=== PATIENT | female | born 2000 | race Caucasian/White ===

== ENCOUNTER 2020-07-23 21:16 | Emergency (ER) | payer OTHER, SELFPAY ==
[2020-07-23 21:21] VITALS: BP 178/85; PULSE 93; RESP 16; TEMP 36.9; O2SAT 98; BMI 37.8
[2020-07-23 21:47] LABS: Bacteria Urine None Seen; WBC Urine None Seen (0-5/HPF)
[2020-07-23 22:07] LABS: Culture Indicated Urine Cult Not Indicated; RBC Urine 0-1/HPF (0-5/HPF); Squamous Epithelial Cell Urine 0-1 /HPF (0-5/HPF)
--- NOTE | 2020-07-23 22:19 | ED_ITS ---
HPI - Female Genitourinary General Chief complaint: Urogenital-Female Stated complaint: severe stomach pains Time Seen by Provider: 07/23/20 22:08 Source: patient Mode of arrival: Ambulatory Limitations: no limitations History of Present Illness HPI Narrative: Patient is a 20-year-old female who presents with suprapubic pain and frequent urination which started today. She denies any dysuria or hematuria. No fever chills or flank pain no nausea or vomiting. She has had UTIs in the past this does feel a little bit different. She denies any vaginal discharge or abnormal smells. Complaint: UTI Onset (ago): hour(s) Related Data Previous Rx's Medication Instructions Recorded sulfamethoxazole-trimethoprim 1 tab PO BID 4 Days #8 tab 07/23/20 [Bactrim DS] Allergies Allergy/AdvReac Type Severity Reaction Status Date / Time No Known Drug Allergies Allergy Verified 07/23/20 21:26 Review of Systems Review of Systems Narrative: GENERAL: Denies chills,fever HEENT: Denies throat pain RESPIRATORY: Denies dyspnea, cough, wheezing CARDIOVASCULAR: Denies chest pain, palpitations : See HPI GASTROINTESTINAL: Denies nausea, vomiting MUSCULOSKELETAL: Denies extremity pain, injury SKIN: No rash, no laceration, no pruritus NEUROLOGIC: Denies weakness, dizziness, headache, numbness 8 point review of systems is negative except for those stated above and HPI Patient History Medical History Patient denies medical problems alcohol intake frequency: holidays/special occasions only Substance Use Type: does not use Exam Initial Vital Signs Initial Vital Signs: Vital Signs Temperature 98.4 F 07/23/20 21:21 Pulse Rate 93 H 07/23/20 21:21 Respiratory Rate 16 07/23/20 21:21 Blood Pressure 178/85 H 07/23/20 21:21 Pulse Oximetry 98 07/23/20 21:21 GENERAL: Alert well-appearing 20-year-old female and in no acute distress. HEENT: Head atraumatic,EOMI, pupils reactive, face symmetric, moist mucous membranes CARDIOVASCULAR: Regular rate and rhythm without murmurs, rubs or gallops. RESPIRATORY: Breath sounds equal bilaterally, no wheezes rales or rhonchi. ABDOMEN: Soft, mild suprapubic tenderness no guarding no rebound no lower quadrant pain : No CVA tenderness EXTREMITIES: Normal range of motion, no clubbing or edema. Neurovascularly intact NEUROLOGICAL: Alert and oriented x4.Normal gait and speech. SKIN: Warm, dry, no laceration, no petechiae, no rashes or lesions. Course Orders Ordered: ED Orders 07/23/20 21:46 Urine Microscopic Stat Discontinued Medications Trimethoprim/Sulfamethoxazole (Trimeth/Sulfa 160/800 Prepack) 1 bottle MISC SEEINSTR ONE Stop: 07/23/20 22:25 Last Admin: 07/23/20 22:35 Dose: 1 bottle Documented by: ABBEY Vital Signs Vital signs: Vital Signs - 8 hr 07/23/20 21:21 07/23/20 22:40 Temperature 98.4 F 98.6 F Pulse Rate 93 H 93 H Respiratory Rate 16 20 Blood Pressure 178/85 H 135/80 Pulse Oximetry 98 97 MDM - Female Genitourinary Lab Data Attestation: I reviewed the patient's lab results. Labs: Lab Results 07/23/20 Range/Units 21:46 Urine RBC 0-1/hpf (0-5/HPF) Urine WBC None seen (0-5/HPF) Ur Squamous Epith Cells 0-1 /hpf (0-5/HPF) Urine Bacteria None seen (None) Ur Culture Indicated? Cult not indicated Micro UA Comment Pyridium present Point of Care Testing Test Results Negative Urine Dip Bedside Urine Glucose Negative Bedside Urine Bilirubin - Negative Bedside Urine Ketone - Negative Urine Specific [place] 1.015 Bedside Urine Occult Blood - Negative Bedside Urine pH 6.0 Bedside Urine Protein - Negative Bedside Urine Urobilinogen +/- 1mg Bedside Urine Nitrite + Positive Bedside Urine Leukocytes - Negative Esterase Discharge Plan Departure Patient Disposition: Home Clinical Impression: Urinary tract infection Qualifiers: Urinary tract infection type: acute cystitis Hematuria presence: without hematuria Qualified Code(s): N30.00 - Acute cystitis without hematuria Instructions: DI for Urinary Tract Infection (UTI) Activity Restrictions/Additional Instructions: *You have been diagnosed with UTI *What to do: Increase fluid intake *Continue to take medications as directed Bathroom 1 tablet twice a day for 5 days total *Follow up with your primary care provider in 2-3 days *Return to ER if you should have fever, flank pain, inability to keep fluids down or any new, worsening or concerning symptoms Prescriptions: New sulfamethoxazole-trimethoprim [Bactrim DS] 800-160 mg tablet 1 tab PO BID 4 Days Qty: 8 RF: 0
[2020-07-23] MEDS: TRIMETH/SULFA 160/800 PREPACK 1 BOTTLE MISC (22:35)
[2020-07-23 22:40] VITALS: BP 135/80; PULSE 93; RESP 20; TEMP 37; O2SAT 97
== END 2020-07-23 22:40 | disposition home or self-care (01) ==
PROVIDERS: Emergency Provider Emergency Medicine
DX: N30.00 Acute cystitis without hematuria (principal)
CPT/HCPCS: 81003; 81015; 81025; 99282; 99283

== ENCOUNTER 2020-09-10 15:25 | Emergency (ER) | payer OTHER, SELFPAY ==
[2020-09-10 15:27] VITALS: BP 164/82; PULSE 90; RESP 16; TEMP 36.2; O2SAT 99; BMI 41.1
--- NOTE | 2020-09-10 15:33 | DI.US.S_ITS ---
P of ROCEDURE: US OB <= 14 WEEKS FETUS INDICATIONS: abd cramping,5 weeks OUTSIDE/PRIOR DATING DATA: Last menstrual period (LMP): 08/02/20. LMP-based estimated date of delivery (LUISA): 05/09/21. First dating scan (date and location): 09/09/20. Estimated date of delivery (LUISA) from first dating scan: Please see below TECHNIQUE: Real-time scanning was performed of the fetus and maternal pelvic organs, with image documentation. Endovaginal scanning was also performed to better visualize the fetus and maternal ovaries. COMPARISON: None. FINDINGS: Embryo: A suspected intrauterine gestational sac is seen measuring 0.75 cm, 5 weeks 4 days however no pole is seen. Measurement variability in dating: +/- 4 weeks by LMP, +/- 7 days by mean sac diameter (use before 6 weeks gestation if crown-rump length not able to be measured), +/- 5 days by crown-rump length (up to 8 weeks 6 days gestation), +/- 7 days by crown-rump length (up to 13 weeks 6 days gestation). Maternal organs: Ovaries unremarkable bilaterally . IMPRESSION: Possible intrauterine gestational sac although no pole identified. Differential includes early intrauterine , versus blighted ovum. Technically cannot exclude ectopic at this time although no gross adnexal mass is seen.Please correlate clinically with beta HCG values and follow-up ultrasound in 1 week recommended as clinically warranted. Dictated by: Emerson Jara M.D. on 09/10/2020 at 16:36 Approved by: Emerson Jara M.D. on 09/10/2020 at 16:40
[2020-09-10 16:18] LABS: Alanine Aminotransferase 45 IU/L (<35); Albumin 4.4 g/dL (3.5-5.0); Albumin Globulin Ratio 1.2 (1.0-2.8); Alkaline Phosphatase 70 U/L (38-126); Aspartate Aminotransferase 37 IU/L (14-36); BUN Creatinine Ratio 14.8 (6-22); Bilirubin Total 0.2 mg/dL (0.2-1.3); Blood Urea Nitrogen 8 mg/dL (7-17); Calcium 9.7 mg/dL (8.4-10.2); Carbon Dioxide 25 mmol/L (22-32); Chloride 102 mmol/L (98-107); Estimated Glomerular Filt Rate > 60.0 mL/min (>60); Globulin 3.7 g/dL (1.7-4.1); Glucose 85 mg/dL (70-100); HEMOLYSIS < 15 (0-50); Potassium 3.9 mmol/L (3.4-5.1); Sodium 135 mmol/L (137-145); Total Protein 8.1 g/dL (6.3-8.2)
[2020-09-10 16:34] LABS: HCG Quantitative /Beta subunit 4224.8 mIU/mL
[2020-09-10 16:48] VITALS: BP 127/75; PULSE 78; O2SAT 97
[2020-09-10 17:15] LABS: Add Manual Diff / Slide Review NO; Basophils Absolute Auto 100 /uL (0-100); Basophils Percent Auto 0.6 % (0-2); Eosinophils Absolute Auto 100 /uL (0-450); Hematocrit 39.3 % (36-46); Hemoglobin 12.8 g/dL (12.0-16.0); Lymphocytes Absolute Auto 3300 /uL (1100-4500); Lymphocytes Percent Auto 23.9 % (25-40); Mean Corpuscular HGB Conc 32.5 % (30-36); Mean Corpuscular Hemoglobin 25.5 PG (26-34); Mean Corpuscular Volume 78.3 fL (80-100); Monocytes Absolute Auto 900 /uL (0-900); Monocytes Percent Auto 6.9 % (3-14); Neutrophils Absolute Auto 9200 /uL (1500-7000); Neutrophils Percent Auto 67.6 % (50-75); Platelet Count 420 X10^3/uL (150-400); Red Blood Cell Count 5.01 X10^6/uL (4.0-5.2); White Blood Cell Count 13.7 X10^3/uL (4.5-11.0)
--- NOTE | 2020-09-10 17:15 | ED_ITS ---
HPI - General Adult General Chief complaint: Abdominal Pain Stated complaint: 5 weeks , cramping Time Seen by Provider: 09/10/20 17:10 Source: patient Mode of arrival: Ambulatory Limitations: no limitations History of Present Illness HPI narrative: Patient is a 20-year-old female. at approximately 5 weeks EGA by her last menstrual cycle who is here for evaluation of abdominal discomfort. She states that the abdominal discomfort started within the past 24 hours. She states that earlier today she and her attempted to have intercourse in the discomfort worsened. She is not having any vaginal bleeding. She has not had an OB appointment up to this point. Related Data Allergies Allergy/AdvReac Type Severity Reaction Status Date / Time No Known Drug Allergies Allergy Verified 09/10/20 15:29 Review of Systems Constitutional Constitutional: Denies fever(s) Cardiovascular Cardiovascular: Reports system reviewed and no additional complaints, except as documented Respiratory Respiratory: Reports system reviewed and no additional complaints, except as documented Gastrointestinal Gastrointestinal: Reports abdominal pain, Denies nausea and Denies vomiting Genitourinary Genitourinary: Denies dysuria Genitourinary: Denies abnormal vaginal bleeding and Denies dysuria Musculoskeletal Musculoskeletal: Denies back pain Integumentary/Breasts Skin/Breast: Denies rash Neurologic Neurologic: Reports system reviewed and no additional complaints, except as documented Hematologic/Lymphatic On Anticoagulants: No Allergic/Immunologic Allergic/Immunologic: Reports system reviewed and no additional complaints, except as documented Patient History Medical History Patient denies medical problems Social History Smoking Status: Unknown if ever smoked Smoking Status: Unknown if ever smoked alcohol intake frequency: holidays/special occasions only Substance Use Type: does not use Exam Initial Vital Signs Initial Vital Signs: Vital Signs Temperature 97.2 F L 09/10/20 15:27 Pulse Rate 90 09/10/20 15:27 Respiratory Rate 16 09/10/20 15:27 Blood Pressure 164/82 H 09/10/20 15:27 Pulse Oximetry 99 09/10/20 15:27 Const General: cooperative and comfortable Limitations: mental status not altered HENMT Head: normal to inspection and normocephalic Resp Effort & Inspection: normal respiratory effort Cardio Rate: regular rate GI Inspection: non-distended Skin Lesions: no lesions Rashes: no rashes Neuro General: patient alert and patient awake Cognition: normal cognition Speech: speech normal Extrem General: normal to inspection and capillary refill normal Psych Appearance: grossly normal and well kempt Course Orders Ordered: ED Orders 09/10/20 15:33 US OB <= 14 weeks fetus Stat 09/10/20 15:44 ABO RH Type Stat Complete Blood Count AUTO DIFF Stat Comprehensive Metabolic Panel Stat HCG Quantitative /Beta subunit Stat Vital Signs Vital signs: Vital Signs - 8 hr 09/10/20 15:27 09/10/20 16:48 Temperature 97.2 F L Pulse Rate 90 78 Respiratory Rate 16 Blood Pressure 164/82 H 127/75 Pulse Oximetry 99 97 Medical Decision Making Lab Data Lab results reviewed: Yes I reviewed the patient's lab results. Result diagrams: 09/10/20 15:44 09/10/20 15:44 Labs: Lab Results 09/10/20 09/10/20 09/10/20 Range/Units 15:44 15:44 15:44 WBC 13.7 H (4.5-11.0) X10^3/uL RBC 5.01 (4.0-5.2) X10^6/uL Hgb 12.8 (12.0-16.0) g/dL Hct 39.3 (36-46) % MCV 78.3 L (80-100) fL MCH 25.5 L (26-34) PG MCHC 32.5 (30-36) % RDW 15.0 H (11.6-14.8) % Plt Count 420 H (150-400) X10^3/uL Neut % (Auto) 67.6 (50-75) % Lymph % (Auto) 23.9 L (25-40) % [place] % (Auto) 6.9 (3-14) % Eos % (Auto) 1.0 L (2-4) % Baso % (Auto) 0.6 (0-2) % Neut # (Auto) 9200 H (5231-1321) /uL Lymph # (Auto) 3300 (9064-2634) /uL [place] # (Auto) 900 (0-900) /uL Eos # (Auto) 100 (0-450) /uL Baso # (Auto) 100 (0-100) /uL Sodium 135 L (137-145) mmol/L Potassium 3.9 (3.4-5.1) mmol/L Chloride 102 (98-107) mmol/L Carbon Dioxide 25 (22-32) mmol/L BUN 8 (7-17) mg/dL Creatinine 0.54 (0.52-1.04) mg/dL Estimated GFR > 60.0 (>60) mL/min BUN/Creatinine Ratio 14.8 (6-22) Glucose 85 (70-100) mg/dL Calcium 9.7 (8.4-10.2) mg/dL Total Bilirubin 0.2 (0.2-1.3) mg/dL AST 37 H (14-36) IU/L ALT 45 H (<35) IU/L Alkaline Phosphatase 70 (38-126) U/L Total Protein 8.1 (6.3-8.2) g/dL Albumin 4.4 (3.5-5.0) g/dL Globulin 3.7 (1.7-4.1) g/dL Albumin/Globulin Ratio 1.2 (1.0-2.8) HCG, Quant 4224.8 mIU/mL Blood Type A Positive Point of Care Testing Test Results Positive Urine Dip Bedside Urine Glucose Negative Bedside Urine Bilirubin - Negative Bedside Urine Ketone - Negative Urine Specific [place] 1.020 Bedside Urine Occult Blood - Negative Bedside Urine pH 6.0 Bedside Urine Protein - Negative Bedside Urine Urobilinogen - Negative Bedside Urine Nitrite - Negative Bedside Urine Leukocytes - Negative Esterase Point of care testing: Point of Care Testing Test Results Positive Urine Dip Bedside Urine Glucose Negative Bedside Urine Bilirubin - Negative Bedside Urine Ketone - Negative Urine Specific [place] 1.020 Bedside Urine Occult Blood - Negative Bedside Urine pH 6.0 Bedside Urine Protein - Negative Bedside Urine Urobilinogen - Negative Bedside Urine Nitrite - Negative Bedside Urine Leukocytes - Negative Esterase [facility] Narrative Medical decision making narrative: Patient is Rh positive. No indication for RhoGAM based on this and the fact that she is not having any vaginal bleeding. She is having some abdominal discomfort that has started within the past 24 hours. Her hCG level was above the threshold for which we should see a intrauterine . Gestational sac was seen but no pole. I suspect this is because she is early on in her given her presentation today. I did discuss with her the findings on the labs and also the ultrasound. We did discuss the importance of keeping a follow-up appointment with her OB. She was given strict return precautions. She does have leukocytosis or there is no indication for any infection. No antibiotics needed. Patient expressed understanding agreement this plan. Discharge Plan Departure Patient Disposition: Home Clinical Impression: Abdominal pain affecting Instructions: DI for Abdominal Pain -- Early Activity Restrictions/Additional Instructions: I recommend that you contact your primary doctor for follow-up like we discussed. Return to the emergency department for any new or worsening sympt oms.
[2020-09-10 17:28] VITALS: BP 137/75; PULSE 89; RESP 16; O2SAT 99
== END 2020-09-10 17:29 | disposition home or self-care (01) ==
PROVIDERS: Emergency Provider Emergency Medicine
DX: O26.891 Other specified pregnancy related conditions, first trimester (principal); R10.9 Unspecified abdominal pain; Z3A.01 Less than 8 weeks gestation of pregnancy
CPT/HCPCS: 36415; 76801; 80053; 81003; 81025; 84702; 85025; 86900; 86901; 99282; 99284

== ENCOUNTER → 2020-10-06 14:10 | Outpatient (CLI) | payer OTHER, SELFPAY ==
--- NOTE | 2020-10-06 14:11 | DI.US.S_ITS ---
PROCEDURE: US OB <= 14 WEEKS FETUS INDICATIONS: DATING AND VIABILITY OUTSIDE/PRIOR DATING DATA: Last menstrual period (LMP): August 02, 2020 LMP-based estimated date of delivery (LUISA): May 09, 2021 First dating scan (date and location): September 09, 2020 Estimated date of delivery (LUISA) from first dating scan: May 09, 2021 TECHNIQUE: Real-time scanning was performed of the fetus and maternal pelvic organs, with image documentation. Endovaginal scanning was also performed to better visualize the fetus and maternal ovaries. COMPARISON: [facility], , OB <= 14 WEEKS FETUS, 09/10/2020, 14:53. FINDINGS: Embryo: Single living intrauterine identified. Yolk sac identified. pole identified. The crown-rump length measures 2.3 centimeters corresponding to ultrasound estimated gestational age of 9 weeks 0 days with expected age of 9 weeks 2 days based on initial ultrasound. Heart rate: 175 beats per minute. Measurement variability in dating: +/- 4 weeks by LMP, +/- 7 days by mean sac diameter (use before 6 weeks gestation if crown-rump length not able to be measured), +/- 5 days by crown-rump length (up to 8 weeks 6 days gestation), +/- 7 days by crown-rump length (up to 13 weeks 6 days gestation). Maternal organs: Ovaries are sonographically normal. Maternal cervix is closed and measures 4.5 centimeters. IMPRESSION: Single living intrauterine with ultrasound estimated gestational age of 9 weeks 0 days in the current study and expected age of 9 weeks 2 days based on initial ultrasound. Dictated by: Maude Fairchild MD, PhD on 10/06/2020 at 17:09 Approved by: Maude Fairchild MD, PhD on 10/06/2020 at 17:12
== END ==
PROVIDERS: PCP Family Medicine; Referring Provider Family Medicine; Visit Provider Family Medicine
DX: Z34.81 Encounter for supervision of other normal pregnancy, first trimester (principal); Z3A.09 9 weeks gestation of pregnancy
CPT/HCPCS: 76801

== ENCOUNTER → 2020-10-13 15:41 | Outpatient (CLI) | payer OTHER, SELFPAY ==
[2020-10-13 16:53] LABS: Add Manual Diff / Slide Review NO; Basophils Absolute Auto 100 /uL (0-100); Basophils Percent Auto 0.6 % (0-2); Eosinophils Absolute Auto 100 /uL (0-450); Eosinophils Percent Auto 0.8 % (2-4); Hematocrit 37.2 % (36-46); Hemoglobin 11.9 g/dL (12.0-16.0); Lymphocytes Absolute Auto 2600 /uL (1100-4500); Lymphocytes Percent Auto 21.7 % (25-40); Mean Corpuscular HGB Conc 32.1 % (30-36); Mean Corpuscular Hemoglobin 25.2 PG (26-34); Mean Corpuscular Volume 78.5 fL (80-100); Monocytes Absolute Auto 700 /uL (0-900); Monocytes Percent Auto 5.9 % (3-14); Neutrophils Absolute Auto 8600 /uL (1500-7000); Platelet Count 458 X10^3/uL (150-400); Red Blood Cell Count 4.74 X10^6/uL (4.0-5.2); Red Cell Distribution Width 14.7 % (11.6-14.8); White Blood Cell Count 12.1 X10^3/uL (4.5-11.0)
[2020-10-13 17:16] LABS: Appearance Urine UA CLEAR; Bilirubin Urine UA NEGATIVE (NEGATIVE); Color Urine UA YELLOW; Glucose Urine UA NEGATIVE (Negative); Ketones Urine UA TRACE (NEGATIVE); Leukocyte Esterase Urine UA NEGATIVE (NEGATIVE); Nitrite Urine UA NEGATIVE (Negative); Occult Blood Urine UA TRACE-LYSED (Negative); Protein Urine UA NEGATIVE (Negative); Specific Gravity Urine UA 1.025 (1.000-1.035); Urobilinogen Urine UA 0.2 E.U./dL (0.2)
[2020-10-14 08:09] LABS: RPR Screen Non Reactive (Non Reactive); Varicella IgG Antibody 195 index (Immune >165)
[2020-10-15 17:04] LABS: Hepatitis B Surface Antigen NEGATIVE s/c (NEGATIVE); Rubella Antibody IgG 8.8 IU/mL (>15)
[2020-10-15 17:14] LABS: HIV 1 & 2 Ab/Ag 4th Gen Combo NEGATIVE (NEGATIVE)
[2020-10-15 17:20] LABS: Hep C Virus Ab w/Reflex Quant NEGATIVE s/c (NEGATIVE)
== END ==
PROVIDERS: PCP Family Medicine; Referring Provider Family Medicine; Visit Provider Family Medicine
DX: Z34.81 Encounter for supervision of other normal pregnancy, first trimester (principal)
CPT/HCPCS: 36415; 80055; 81003; 86787; 86803; 86850; 86900; 86901; 87086; 87389

== ENCOUNTER → 2020-10-26 13:24 | Outpatient (CLI) | payer OTHER, SELFPAY ==
[2020-10-26 14:29] LABS: Appearance Urine UA CLEAR; Bilirubin Urine UA NEGATIVE (NEGATIVE); Color Urine UA YELLOW; Glucose Urine UA NEGATIVE (Negative); Ketones Urine UA TRACE (NEGATIVE); Leukocyte Esterase Urine UA TRACE (NEGATIVE); Nitrite Urine UA NEGATIVE (Negative); Occult Blood Urine UA TRACE-INTACT (Negative); Protein Urine UA TRACE (Negative); Specific Gravity Urine UA >=1.030 (1.000-1.035); Urobilinogen Urine UA 0.2 E.U./dL (0.2)
[2020-10-26 15:04] LABS: pH Urine UA 5.5 (4.5-8.0)
[2020-10-26 15:08] LABS: Bacteria Urine Moderate (10-30); RBC Urine 0-1/HPF (0-5/HPF); Squamous Epithelial Cell Urine 1-5 /HPF (0-5/HPF); WBC Urine 1-5/HPF (0-5/HPF)
[2020-10-26 15:09] LABS: Calcium Oxalate Crystals Urine Few; Culture Indicated Urine Specimen Cultured
== END ==
PROVIDERS: PCP Family Medicine; Referring Provider Family Medicine; Visit Provider Family Medicine
DX: R30.0 Dysuria (principal)
CPT/HCPCS: 81001; 87086

== ENCOUNTER → 2020-12-08 14:40 | Outpatient (CLI) | payer OTHER, SELFPAY ==
[2020-12-10 19:12] LABS: AFP, Serum 25.7 ng/mL (.); Calc Gestational Age Ultrasound (.); Estriol, Free 1.47 ng/mL (.); Inhibin A, Dimeric 112.58 pg/mL (.); Inhibin A, MoM 0.96 (.); Maternal Ethnicity Caucasian (.); Maternal Weight 255 lbs (.); Number of Fetuses No (.); OSBR Risk 1 IN 10000 (.); Results Report (.); Test Results *Screen Negative* (.); hCG, MoM 1.79 (.); hCG, Serum 34946 mIU/mL (.)
== END ==
PROVIDERS: PCP Family Medicine; Referring Provider Family Medicine; Visit Provider Family Medicine
DX: Z34.90 Encounter for supervision of normal pregnancy, unspecified, unspecified trimester (principal); Z3A.16 16 weeks gestation of pregnancy
CPT/HCPCS: 36415; 82105; 82677; 84702; 86336

== ENCOUNTER → 2020-12-28 14:57 | Outpatient (CLI) | payer OTHER, SELFPAY ==
--- NOTE | 2020-12-28 14:58 | DI.US.S_ITS ---
PROCEDURE: US OB >= 14 WEEKS FETUS INDICATIONS: ANATOMY OUTSIDE/PRIOR DATING DATA: Last menstrual period (LMP): Unknown . LMP-based estimated date of delivery (LUISA): Unknown . First dating scan (date and location): 12/28/20 . Estimated date of delivery (LUISA) from first dating scan: 05/10/21 . TECHNIQUE: Real-time scanning was performed of the fetus, with image documentation and biometric measurements. Endovaginal scanning: Not performed COMPARISON: None. FINDINGS: General: A single living intrauterine gestation is present. Presentation: Vertex. Placenta: Placental position is posterior , without previa. Amniotic fluid index: 11.8 cm, normal range is 5-24 cm. heart rate: 145 beats per minute. Maternal cervical canal: 4.2 cm long. Normal lower limit is 2.5 cm. biometrics: Biparietal diameter: 5.0 cm, 21 weeks 0 days Head circumference: 18.0 cm, 20 weeks 3 days Abdominal circumference: 16.3 cm, 21 weeks 3 days Femur length: 3.6 cm, 21 weeks 2 days Estimated gestational age from initial scan: not applicable. Composite gestational age from present scan: 21 weeks 0 days Estimated weight and percentile: 411 g Measurement variability for biometric dating: +/- 7 days from 14 weeks to 15 weeks 6 days gestation, +/- 10 days from 16 weeks to 21 weeks 6 days gestation, +/- 2 weeks from 22 weeks to 27 weeks 6 days gestation, +/- 3 weeks for 28 weeks gestation or later. weight reference: 4500 g or EFW >90/95% is considered macrosomia or large for gestational age. EFW <10% is small for gestational age. EFW 5% or less is considered intra-uterine growth restriction. Anatomic survey: Neuro: Ventricles are non-dilated at less than 10 mm. Cisterna magna is normal at 3-11 mm. Cerebellum is normal in size and morphology. Nuchal skin fold: Normal at less than 6 mm between 14-21 weeks gestational age. Face: Nose and lips, facial profile are normal. Spine: No evidence for spina bifida. Heart: 4-chambered heart is present, with normal ventricular outflow tracts. Diaphragm: Diaphragm is intact. Stomach: Left-sided stomach is present. Kidneys: No hydronephrosis. Normal is less than 5 mm in 2nd trimester, less than 7 mm in 3rd trimester. Cord: 3-vessel cord has orthotopic insertion. Bladder: Normal in size. Extremities: All 4 extremities identified. IMPRESSION: Single living intrauterine fetus with a gestational age measuring 21 weeks and 0 days by today's ultrasound measurements in vertex presentation. Growth assessment precluded by absence of first-trimester ultrasound or LMP. A follow-up ultrasound for growth purposes could be performed in 3-4 weeks as clinically necessary. Normal anatomic survey Dictated by: Emerson Jara M.D. on 12/28/2020 at 17:16 Approved by: Emerson Jara M.D. on 12/28/2020 at 17:19
== END ==
PROVIDERS: PCP Family Medicine; Referring Provider Family Medicine; Visit Provider Family Medicine
DX: Z36.89 Encounter for other specified antenatal screening (principal); Z3A.21 21 weeks gestation of pregnancy
CPT/HCPCS: 76811

== ENCOUNTER 2021-02-06 15:33 | Observation (INO) | payer OTHER, SELFPAY ==
[2021-02-06 16:14] LABS: Appearance Urine UA CLEAR; Bilirubin Urine UA NEGATIVE (NEGATIVE); Color Urine UA YELLOW; Glucose Urine UA NEGATIVE (Negative); Ketones Urine UA NEGATIVE (NEGATIVE); Leukocyte Esterase Urine UA 1+ (NEGATIVE); Nitrite Urine UA NEGATIVE (Negative); Occult Blood Urine UA NEGATIVE (Negative); Protein Urine UA NEGATIVE (Negative); Specific Gravity Urine UA 1.015 (1.000-1.035); Urobilinogen Urine UA 0.2 E.U./dL (0.2)
[2021-02-06 16:29] LABS: Bacteria Urine Moderate (10-30); Culture Indicated Urine Cult Not Indicated; RBC Urine None Seen (0-5/HPF); Squamous Epithelial Cell Urine 5-10 /HPF (0-5/HPF); WBC Urine 1-5/HPF (0-5/HPF)
--- NOTE | 2021-02-06 17:55 | P.TNLD_ITS ---
Visit Information Visit Information Date of evaluation: 02/06/21 Primary OB Provider: Claire Guillen On-call OB Provider: Dahiana Sheikh Comments/Additional reasons for admission: Gretchen is a 20 year old at 26w6d with LUISA of 05/09/2021 per first trimester ultrasound. She presents with concerns that she may have passed her mucus plug 6 days prior to triage. She was seen 5 days prior to admission in clinic with same complaint. Denies any abdominal cramping. No fever. Reports that the day prior to leaking fluid, she did have intercourse. Since that time, she has not needed to use a menstrual pad to catch fluid. No vaginal bleeding. Denies vaginal itching. She has not had intercourse since the discharge occurred 6 days ago. No concerns of infidelity. Baby has been very active. Just prior to coming to triage, she did not feel the baby move as much; however, since arriving in OB, her baby has been very active. She has had a snack here. She has been taking home blood pressures and feels that they may have been falsely elevated because she anxiously awaits the number, home blood pressures average 135/80s. Upon review of her blood pressures in clinic, they have ranged between 108-134/66-78 with one outlier at 148/96, that normalized upon recheck. Denies headache. Blood pressure is normal today in triage. Her course has been otherwise uncomplicated. She did have an [facility] ED visit for abdominal discomfort, workup unremarkable. Pain resolved. LABS/IMAGING: ABO: A positive, antibody negative on 10/14/2019. Rubella non-immune. Hepatitis-B surface antigen negative. HIV, HSV 1 and 2 negative. VDRL negative. Varicella titer positive. Hemoglobin/hematocrit 12.8/39.3 on 09/10/2020. Quad screen negative on 12/08/2020. Dating US: Anatomy Scan: OBSTETRIC HISTORY: G1: first trimster SAB, 07/16/20, no complications GYNECOLOGICAL HISTORY: None [facility] Medical History Addiction (~2015) Anemia (~2017) Anxiety Depression Heat stroke Left hand fracture Migraine Obesity PTSD (post-traumatic stress disorder) SAB (spontaneous ) (~07/2016) Surgical History No significant past surgical history Family History Father No problems noted. Mother Hypothyroidism (acquired) Grandfather Family estrangement Chronic alcoholism Grandmother History of prediabetes Grandfather Melanoma Grandmother S/P triple vessel bypass Smoker Sister No problems noted. 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 Exam Narrative Exam Narrative: General: NAD Skin: Color unremarkable, no rash nor lesions HEENT: Neck supple with midline trachea Lungs: CTAB Heart: Normal rate, and regular rhythm, S1, S2 normal, no murmur, click, rub or gallop Abdomen: Gravid, soft, non-tender Extremities: No cord, no edema, no cyanosis Pelvis: Normal female external genitalia, no curd-like discharge externally Monitoring: Variability: Moderate Baseline: 140s Accelerations: Present Decelerations: Variable x 2, resolved after hydration/food Contractions: none, some irritability Strength: mild Objective Labs Labs: Laboratory Results - last 24 hr 02/06/21 15:55 Urine Color Yellow Urine Appearance Clear Urine pH 6.0 Ur Specific [place] 1.015 Urine Protein Negative Urine Glucose (UA) Negative Urine Ketones Negative Urine Occult Blood Negative Urine Nitrate Negative Urine Bilirubin Negative Urine Urobilinogen 0.2 Ur Leukocyte Esterase 1+ H Urine RBC None seen Urine WBC 1-5/hpf Ur Squamous Epith Cells 5-10 /hpf H Urine Bacteria Moderate (10-30) H Ur Culture Indicated? Cult not indicated Diagnosis, Plan/Disposition Plan/Disposition Plan: 1. IUP at 26w6d 2. 3. Vaginal discharge Plan: AmniSure negative. Urinalysis contaminated with skin cells x2. No evidence of nitrites, low suspicion for UTI. Urine GC/chlamydia negative. Provided reassurance, vaginal discharge is likely secondary to post intercourse discharge or physiologic discharge from , especially since discharge has now stopped and she is not needing to wear a pad to catch any ongoing discharge. She is not cramping or having any signs of early labor. Nonstress test is reactive and reassuring. UDS negative. Advised patient follow-up with Dr. Guillen as scheduled, sooner with concerns. She demonstrated understanding and agreement with treatment plan. Questions answered.
[2021-02-06 18:04] LABS: Appearance Urine UA CLEAR; Bilirubin Urine UA NEGATIVE (NEGATIVE); Color Urine UA YELLOW; Glucose Urine UA NEGATIVE (Negative); Ketones Urine UA 1+ (NEGATIVE); Leukocyte Esterase Urine UA TRACE (NEGATIVE); Nitrite Urine UA NEGATIVE (Negative); Occult Blood Urine UA NEGATIVE (Negative); Protein Urine UA NEGATIVE (Negative); Urobilinogen Urine UA 0.2 E.U./dL (0.2)
[2021-02-06 18:06] LABS: pH Urine UA 5.5 (4.5-8.0)
[2021-02-06 18:10] LABS: UR Morphine/Opiate cutoff 300 Negative (Negative); Ur Creatinine Normal (Normal); Ur Specific Gravity Normal (Normal); Urine Amphetamines Negative (Negative); Urine Barbiturates Negative (Negative); Urine Benzodiazepines Negative (Negative); Urine Cocaine Negative (Negative); Urine MDMA Negative (Negative); Urine Methadone Negative (Negative); Urine Methamphetamines Negative (Negative); Urine Oxycodone Negative (Negative); Urine Phencyclidine Negative (Negative); Urine Tetrahydrocannabinol Negative (Negative); Urine Tricyclic Antidepressant Negative (Negative); Urine pH Normal (Normal)
[2021-02-06 18:19] LABS: Amorphous Sediment Urine 1+; Bacteria Urine Moderate (10-30); Culture Indicated Urine Cult Not Indicated; RBC Urine None Seen (0-5/HPF); Squamous Epithelial Cell Urine 10-30 /HPF (0-5/HPF); WBC Urine 5-10/HPF (0-5/HPF)
[2021-02-06 19:34] LABS: Urine N gonorrhoeae NOT DETECTED
[2021-02-06 19:40] LABS: Urine Chlamydia NOT DETECTED
== END 2021-02-06 19:05 | disposition home or self-care (01) ==
PROVIDERS: Admitting Provider Student in an Organized Health Care Education/Training Program; PCP Family Medicine; Referring Provider Student in an Organized Health Care Education/Training Program; Visit Provider Student in an Organized Health Care Education/Training Program
DX: O26.892 Other specified pregnancy related conditions, second trimester (principal); N89.8 Other specified noninflammatory disorders of vagina; Z3A.26 26 weeks gestation of pregnancy
CPT/HCPCS: 59025; 80305; 81001; 87491; 87591; G0378; G0379

== ENCOUNTER → 2021-02-10 10:40 | Outpatient (CLI) | payer OTHER, SELFPAY ==
[2021-02-10 12:31] LABS: Hematocrit 28.9 % (36-46); Hemoglobin 9.4 g/dL (12.0-16.0)
[2021-02-10 12:43] LABS: GTT (PREG) 1 Hour PP 50gm Dose 124 mg/dL (76-139)
== END ==
PROVIDERS: PCP Family Medicine; Referring Provider Family Medicine; Visit Provider Family Medicine
DX: Z34.82 Encounter for supervision of other normal pregnancy, second trimester (principal); Z3A.26 26 weeks gestation of pregnancy
CPT/HCPCS: 36415; 82950; 85014; 85018

== ENCOUNTER → 2021-02-19 14:50 | Outpatient (CLI) | payer OTHER, SELFPAY ==
--- NOTE | 2021-02-19 14:52 | DI.US.S_ITS ---
PROCEDURE: US OB LIMITED INDICATIONS: LARGE FOR GESTATIONAL AGE OUTSIDE/PRIOR DATING DATA: Last menstrual period (LMP): Unknown. First dating scan (date and location): [facility]; December 28, 2020 . Estimated date of delivery (LUISA) from first dating scan: May 10, 2021 . TECHNIQUE: Real-time scanning was performed of the fetus, with image documentation and biometric measurements. COMPARISON: None. FINDINGS: General: A single living intrauterine gestation is present. Presentation: Vertex. Placenta: Placental position is posterior , without previa. Amniotic fluid index: 16.2 cm, normal range is 5-24 cm. heart rate: 173 beats per minute. Maternal cervical canal: Not well visualized. biometrics: Biparietal diameter: 7.6 cm Head circumference: 26.6 cm Abdominal circumference: 24.8 cm Femur length: 5.4 cm Estimated gestational age from initial scan: not applicable. Composite gestational age from present scan: 29 weeks, 2 days Estimated weight and percentile: 1307 g +/-193 g; 50 percentile Measurement variability for biometric dating: +/- 7 days from 14 weeks to 15 weeks 6 days gestation, +/- 10 days from 16 weeks to 21 weeks 6 days gestation, +/- 2 weeks from 22 weeks to 27 weeks 6 days gestation, +/- 3 weeks for 28 weeks gestation or later. weight reference: 4500 g or EFW >90/95% is considered macrosomia or large for gestational age. EFW <10% is small for gestational age. EFW 5% or less is considered intra-uterine growth restriction. Other: Not applicable. IMPRESSION: Live single intrauterine gestation as detailed above. Dictated by: Sam Lau M.D. on 02/19/2021 at 16:15 Approved by: Sam Lau M.D. on 02/19/2021 at 16:18
== END ==
PROVIDERS: PCP Family Medicine; Referring Provider Family Medicine; Visit Provider Family Medicine
DX: Z36.88 Encounter for antenatal screening for fetal macrosomia (principal); Z3A.29 29 weeks gestation of pregnancy
CPT/HCPCS: 76815

== ENCOUNTER 2021-03-15 16:14 | Outpatient (CLI) | payer OTHER, SELFPAY ==
--- NOTE | 2021-03-15 17:01 | PM.OBTRLD ---
Visit Information Visit Information Date of evaluation: 03/15/21 Primary OB Provider: Claire Guillen Reason for Evaluation: Yes non-stress test Comments/Additional reasons for admission: 20-year-old at 32 weeks and 1 day. She comes in concerned about elevated blood pressures at home as high as 154/90. This was during an episode of presumed low blood sugar with dizziness and nausea a couple days ago. Today blood pressure was 140/85 and she did not feel baby was as active as usual. She has had some mild contractions but nothing consistent. No bleeding or leaking though she has had more discharge for weeks (had been seen in the center and AmniSure negative). Vital Signs Vital Signs: Blood pressure 124/63 heart rate 116, repeat blood pressure 125/66 heart rate 99 PFSH Medical History Addiction (~2015) Anemia (~2017) Anxiety Depression Heat stroke Left hand fracture Migraine Obesity PTSD (post-traumatic stress disorder) SAB (spontaneous ) (~07/2016) Surgical History No significant past surgical history Family History Father No problems noted. Mother Hypothyroidism (acquired) Grandfather Family estrangement Chronic alcoholism Grandmother History of prediabetes Grandfather Melanoma Grandmother S/P triple vessel bypass Smoker Sister No problems noted. 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 NST reactive. No contractions noted on monitor. She will follow-up in clinic tomorrow. OB Disposition: home
== END 2021-03-15 17:20 | disposition home or self-care (01) ==
LOC: OB 03-17 07:28
PROVIDERS: PCP Family Medicine; Referring Provider Family Medicine; Visit Provider Family Medicine
DX: O26.893 Other specified pregnancy related conditions, third trimester (principal); R03.0 Elevated blood-pressure reading, without diagnosis of hypertension; Z3A.32 32 weeks gestation of pregnancy
CPT/HCPCS: 59025; G0378; G0379

== ENCOUNTER → 2021-03-16 15:06 | Outpatient (CLI) | payer OTHER, SELFPAY ==
[2021-03-16 15:47] LABS: Add Manual Diff / Slide Review NO; Basophils Absolute Auto 0 /uL (0-100); Basophils Percent Auto 0.2 % (0-2); Eosinophils Absolute Auto 100 /uL (0-450); Eosinophils Percent Auto 0.5 % (2-4); Hematocrit 30.7 % (36-46); Hemoglobin 9.8 g/dL (12.0-16.0); Lymphocytes Absolute Auto 1900 /uL (1100-4500); Lymphocytes Percent Auto 14.2 % (25-40); Mean Corpuscular HGB Conc 31.8 % (30-36); Mean Corpuscular Hemoglobin 23.5 PG (26-34); Mean Corpuscular Volume 73.8 fL (80-100); Monocytes Absolute Auto 700 /uL (0-900); Monocytes Percent Auto 5.4 % (3-14); Neutrophils Absolute Auto 10500 /uL (1500-7000); Neutrophils Percent Auto 79.7 % (50-75); Platelet Count 411 X10^3/uL (150-400); Red Blood Cell Count 4.17 X10^6/uL (4.0-5.2); White Blood Cell Count 13.2 X10^3/uL (4.5-11.0)
[2021-03-16 16:44] LABS: Alanine Aminotransferase 12 IU/L (<35); Albumin 3.7 g/dL (3.5-5.0); Albumin Globulin Ratio 1.2 (1.0-2.8); Alkaline Phosphatase 79 U/L (38-126); Aspartate Aminotransferase 17 IU/L (14-36); BUN Creatinine Ratio 12.3 (6-22); Bilirubin Total 0.2 mg/dL (0.2-1.3); Blood Urea Nitrogen 7 mg/dL (7-17); Calcium 9.7 mg/dL (8.4-10.2); Carbon Dioxide 25 mmol/L (22-32); Chloride 103 mmol/L (98-107); Estimated Glomerular Filt Rate > 60.0 mL/min (>60); Glucose 109 mg/dL (70-100); HEMOLYSIS < 15 (0-50); Potassium 4.7 mmol/L (3.4-5.1); Sodium 136 mmol/L (137-145); Total Protein 6.7 g/dL (6.3-8.2)
== END ==
PROVIDERS: PCP Family Medicine; Referring Provider Family Medicine; Visit Provider Family Medicine
DX: O13.9 Gestational [pregnancy-induced] hypertension without significant proteinuria, unspecified trimester (principal)
CPT/HCPCS: 36415; 80053; 85025

== ENCOUNTER → 2021-03-19 12:59 | Outpatient (CLI) | payer OTHER, SELFPAY ==
[2021-03-19 14:00] LABS: Collection Time Urine 24 Hours; Creatinine Urine Random 241.7 mg/dL; Protein (Total) Urine Random 5 mg/dL (0-12); Total Protein 24 Hour Urine 70 mg/day (42-225); Total Volume Urine 1400 mL
[2021-03-19 14:01] LABS: Protein (Total) Urine Random < 5 mg/dL (0-12); Protein Creatinine Ratio Urine 0.02 GRAM/24H
== END ==
PROVIDERS: PCP Family Medicine; Referring Provider Family Medicine; Visit Provider Family Medicine
DX: O13.9 Gestational [pregnancy-induced] hypertension without significant proteinuria, unspecified trimester (principal)
CPT/HCPCS: 82570; 84156

== ENCOUNTER 2021-03-23 11:51 | Outpatient (CLI) | payer OTHER, SELFPAY ==
--- NOTE | 2021-03-23 12:15 | DI.US.S_ITS ---
PROCEDURE: US OB LIMITED INDICATIONS: AMNIOTIC FLUID AND CERVICAL LENGTH OUTSIDE/PRIOR DATING DATA: Last menstrual period (LMP): Unknown. First dating scan (date and location): [facility]; December 28, 2020. Estimated date of delivery (LUISA) from first dating scan: May 10, 2021. The calculations are made using the ultrasound LUISA of May 10, 2021. TECHNIQUE: Real-time scanning was performed of the fetus, with image documentation. COMPARISON: [facility], , US OB LIMITED, 02/19/2021, 15:00. FINDINGS: A single living intrauterine gestation is present. Presentation: Vertex. Placenta: Placental position is posterior, without previa. Amniotic fluid index: 16.8 cm, normal range is 5-24 cm. Single deepest vertical pocket is 4.8 cm. heart rate: 162 beats per minute. Maternal cervical canal: 3.3 cm long. Normal lower limit is 2.5 cm. Clinically estimated gestational age: 33 weeks, 1 day IMPRESSION: Single intrauterine gestation as detailed above. Dictated by: Sam Lau M.D. on 03/23/2021 at 13:45 Approved by: Sam Lau M.D. on 03/23/2021 at 13:47
[2021-03-23 13:35] LABS: Add Manual Diff / Slide Review NO; Basophils Absolute Auto 0 /uL (0-100); Basophils Percent Auto 0.3 % (0-2); Eosinophils Absolute Auto 100 /uL (0-450); Eosinophils Percent Auto 0.4 % (2-4); Hematocrit 31.5 % (36-46); Lymphocytes Absolute Auto 1800 /uL (1100-4500); Lymphocytes Percent Auto 13.2 % (25-40); Mean Corpuscular HGB Conc 31.7 % (30-36); Mean Corpuscular Hemoglobin 23.7 PG (26-34); Mean Corpuscular Volume 74.8 fL (80-100); Monocytes Absolute Auto 700 /uL (0-900); Monocytes Percent Auto 5.2 % (3-14); Neutrophils Absolute Auto 11300 /uL (1500-7000); Neutrophils Percent Auto 80.9 % (50-75); Platelet Count 427 X10^3/uL (150-400); Red Cell Distribution Width 17.6 % (11.6-14.8)
--- NOTE | 2021-03-23 13:39 | PM.OBTRLD ---
Visit Information Visit Information Date of evaluation: 03/23/21 Primary OB Provider: Claire Guillen Reason for Evaluation: Yes non-stress test non-stress test reason: hypertension/pre-eclampsia Vital Signs Vital Signs: Temperature 37.5? blood pressure 112/58 heart rate 109 All blood pressures in the center were 110-120 over 58-66 [facility] Medical History (Updated 03/23/21 @ 15:09 by Claire Guillen DO) Addiction (~2015) Anemia (~2017) Anxiety Depression Gestational hypertension Heat stroke Left hand fracture Migraine Obesity PTSD (post-traumatic stress disorder) SAB (spontaneous ) (~07/2016) Surgical History No significant past surgical history Family History Father No problems noted. Mother Hypothyroidism (acquired) Grandfather Family estrangement Chronic alcoholism Grandmother History of prediabetes Grandfather Melanoma Grandmother S/P triple vessel bypass Smoker Sister No problems noted. 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 Smoking Status: Former smoker Tobacco: How many years used: 2 Smokeless tobacco user: dissolvable tobacco quit status: quit date established second hand exposure: No alcohol intake: former substance use type: does not use, former substance user and opiates Objective Labs Result Diagrams: 03/23/21 13:25 03/23/21 13:25 Labs: Laboratory Results - last 24 hr 03/23/21 13:25 WBC 14.0 H RBC 4.20 Hgb 10.0 L Hct 31.5 L MCV 74.8 L MCH 23.7 L MCHC 31.7 RDW 17.6 H Plt Count 427 H Neut % (Auto) 80.9 H Lymph % (Auto) 13.2 L [place] % (Auto) 5.2 Eos % (Auto) 0.4 L Baso % (Auto) 0.3 Neut # (Auto) 63429 H Lymph # (Auto) 1800 [place] # (Auto) 700 Eos # (Auto) 100 Baso # (Auto) 0 Evaluation Evaluation Baseline heart rate: 150 Variability: Moderate (11-25) monitor accelerations: Present Monitor Decelerations: Absent Uterine Contraction Intensity: Mild Non-invasive Membranes Rupture Test: negative Diagnosis, Plan/Disposition Final Diagnosis (1) 33 weeks gestation of : Status: Acute (2) Gestational hypertension: Status: Acute Plan/Disposition Plan: 21-year-old at 33 weeks gestation with gestational hypertension. NST reactive, ADALGISA 16.8. Labs reassuring against preeclampsia. AmniSure was done due to reported leaking of fluid and negative. She is scheduled for a growth ultrasound next week. Will continue twice weekly NST and weekly ADALGISA. She has also been referred to Maternal Medicine and is awaiting an appointment. OB Disposition: home
[2021-03-23 13:47] LABS: Alanine Aminotransferase 14 IU/L (<35); Albumin Globulin Ratio 1.2 (1.0-2.8); Alkaline Phosphatase 87 U/L (38-126); Aspartate Aminotransferase 18 IU/L (14-36); BUN Creatinine Ratio 12.5 (6-22); Bilirubin Total 0.3 mg/dL (0.2-1.3); Blood Urea Nitrogen 6 mg/dL (7-17); Calcium 9.8 mg/dL (8.4-10.2); Carbon Dioxide 23 mmol/L (22-32); Chloride 104 mmol/L (98-107); Estimated Glomerular Filt Rate > 60.0 mL/min (>60); Globulin 3.3 g/dL (1.7-4.1); Glucose 115 mg/dL (70-100); HEMOLYSIS < 15 (0-50); Potassium 4.3 mmol/L (3.4-5.1); Sodium 135 mmol/L (137-145); Total Protein 7.3 g/dL (6.3-8.2)
== END 2021-03-23 14:25 | disposition home or self-care (01) ==
LOC: LABOR 13:39 → OB 03-24 11:42
PROVIDERS: PCP Family Medicine; Referring Provider Family Medicine; Visit Provider Family Medicine
DX: Z03.71 Encounter for suspected problem with amniotic cavity and membrane ruled out (principal); O13.3 Gestational [pregnancy-induced] hypertension without significant proteinuria, third trimester; Z3A.33 33 weeks gestation of pregnancy
CPT/HCPCS: 36415; 59025; 76815; 76817; 80053; 84112; 85025; G0378; G0379

== ENCOUNTER 2021-03-26 14:02 | Outpatient (CLI) | payer OTHER, SELFPAY ==
--- NOTE | 2021-03-26 14:56 | PM.OBTRLD ---
Visit Information Visit Information Date of evaluation: 03/26/21 Primary OB Provider: Claire Guillen Reason for Evaluation: Yes non-stress test non-stress test reason: hypertension/pre-eclampsia Vital Signs Vital Signs: Temperature 36.1? blood pressure 127/72 heart rate 102 PFSH Medical History Addiction (~2016) Anemia (~2018) Anxiety Depression Gestational hypertension Heat stroke Left hand fracture Migraine Obesity PTSD (post-traumatic stress disorder) SAB (spontaneous ) (~07/2016) Surgical History No significant past surgical history Family History Father No problems noted. Mother Hypothyroidism (acquired) Grandfather Family estrangement Chronic alcoholism Grandmother History of prediabetes Grandfather Melanoma Grandmother S/P triple vessel bypass Smoker Sister No problems noted. 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 Smoking Status: Former smoker Tobacco: How many years used: 2 Smokeless tobacco user: dissolvable tobacco quit status: quit date established second hand exposure: No alcohol intake: former substance use type: does not use, former substance user and opiates Evaluation Evaluation Baseline heart rate: 130 Variability: Moderate (11-25) monitor accelerations: Present Monitor Decelerations: Absent Category of Tracing: Reactive Diagnosis, Plan/Disposition Final Diagnosis (1) 33 weeks gestation of : Status: Acute (2) Gestational hypertension: Status: Acute Plan/Disposition Plan: 21-year-old at 33 weeks and 5 days with gestational hypertension on labetalol. Blood pressure controlled. NST reactive. Will continue twice weekly NST along with weekly ADALGISA and labs. She is also awaiting consultation with maternal medicine. OB Disposition: home
== END 2021-03-26 15:23 | disposition home or self-care (01) ==
LOC: LABOR 14:08 → OB 03-31 13:42
PROVIDERS: PCP Family Medicine; Referring Provider Family Medicine; Visit Provider Family Medicine
DX: O13.3 Gestational [pregnancy-induced] hypertension without significant proteinuria, third trimester (principal); Z3A.33 33 weeks gestation of pregnancy
CPT/HCPCS: 59025; G0378; G0379

== ENCOUNTER → 2021-03-30 10:36 | Outpatient (CLI) | payer OTHER, SELFPAY ==
--- NOTE | 2021-03-30 10:38 | DI.US.S_ITS ---
PROCEDURE: US OB LIMITED INDICATIONS: LARGE FOR GESTATIONAL AGE. HYPERTENSION. OUTSIDE/PRIOR DATING DATA: Last menstrual period (LMP): Unknown. LMP-based estimated date of delivery (LUISA): Unknown. First dating scan (date and location): 12/28/2020. [facility]. Estimated date of delivery (LUISA) from first dating scan: 05/10/2021. The calculations are made using the ultrasound LUISA of 05/10/2021. TECHNIQUE: Real-time scanning was performed of the fetus, with image documentation. biometry performed. COMPARISON: [facility], , OB LIMITED, 03/23/2021, 12:45. FINDINGS: A single living intrauterine gestation is present. Presentation: Vertex. Placenta: Placental position is posterior. Amniotic fluid index: 12 cm, normal range is 5-24 cm. Single deepest vertical pocket is 4.5 cm. heart rate: 143 beats per minute. Maternal cervical canal: Not well seen. biometry: BPD: 9.1 cm, 36 weeks 6 days. HC: 31.2 cm, 35 weeks 5 days. AC: 34.5 cm, 38 weeks 2 days. FL: 6.7 cm, 34 weeks 3 days. Clinically estimated gestational age: 34 weeks 1 day Estimated gestational age from initial scan: 36 weeks 2 days. Estimated weight 3086 g. 99th percentile. IMPRESSION: Exam is somewhat limited by acoustic windows. 1. Nielsen living intrauterine at 36 weeks 2 days based on today's ultrasound. Dating is concordant with prior dating +/-3 weeks. Fetus is in the 99th percentile for weight. Estimated weight of 3086 g. Correlate for macrosomia. 2. Vertex position. 3. Normal amniotic fluid. Dictated by: Deric Lima M.D. on 03/30/2021 at 11:47 Approved by: Deric Lima M.D. on 03/30/2021 at 11:55
[2021-03-30 16:09] LABS: Add Manual Diff / Slide Review NO; Basophils Absolute Auto 0 /uL (0-100); Basophils Percent Auto 0.2 % (0-2); Eosinophils Absolute Auto 100 /uL (0-450); Eosinophils Percent Auto 0.5 % (2-4); Hematocrit 30.2 % (36-46); Hemoglobin 9.6 g/dL (12.0-16.0); Lymphocytes Absolute Auto 1700 /uL (1100-4500); Lymphocytes Percent Auto 12.9 % (25-40); Mean Corpuscular HGB Conc 31.9 % (30-36); Mean Corpuscular Volume 75.3 fL (80-100); Monocytes Absolute Auto 700 /uL (0-900); Monocytes Percent Auto 5.1 % (3-14); Neutrophils Absolute Auto 10800 /uL (1500-7000); Neutrophils Percent Auto 81.3 % (50-75); Platelet Count 374 X10^3/uL (150-400); Red Blood Cell Count 4.01 X10^6/uL (4.0-5.2); Red Cell Distribution Width 17.8 % (11.6-14.8); White Blood Cell Count 13.3 X10^3/uL (4.5-11.0)
[2021-03-30 16:43] LABS: Alanine Aminotransferase 11 IU/L (<35); Albumin 3.6 g/dL (3.5-5.0); Albumin Globulin Ratio 1.2 (1.0-2.8); Alkaline Phosphatase 77 U/L (38-126); Aspartate Aminotransferase 17 IU/L (14-36); BUN Creatinine Ratio 18.4 (6-22); Bilirubin Total 0.3 mg/dL (0.2-1.3); Blood Urea Nitrogen 9 mg/dL (7-17); Calcium 10.5 mg/dL (8.4-10.2); Carbon Dioxide 25 mmol/L (22-32); Chloride 105 mmol/L (98-107); Estimated Glomerular Filt Rate > 60.0 mL/min (>60); Globulin 2.9 g/dL (1.7-4.1); Glucose 103 mg/dL (70-100); HEMOLYSIS < 15 (0-50); Potassium 4.5 mmol/L (3.4-5.1); Sodium 134 mmol/L (137-145); Total Protein 6.5 g/dL (6.3-8.2)
== END ==
PROVIDERS: PCP Family Medicine; Referring Provider Family Medicine; Visit Provider Family Medicine
DX: O13.3 Gestational [pregnancy-induced] hypertension without significant proteinuria, third trimester (principal); O99.891 Other specified diseases and conditions complicating pregnancy; O36.63X0 Maternal care for excessive fetal growth, third trimester, not applicable or unspecified; L29.9 Pruritus, unspecified; Z3A.34 34 weeks gestation of pregnancy
CPT/HCPCS: 36415; 76815; 80053; 82239; 85025

== ENCOUNTER 2021-03-30 11:21 | Outpatient (CLI) | payer OTHER, SELFPAY ==
--- NOTE | 2021-03-30 12:08 | PM.OBTRLD ---
Visit Information Visit Information Date of evaluation: 03/30/21 Primary OB Provider: Claire Guillen Reason for Evaluation: Yes non-stress test non-stress test reason: hypertension/pre-eclampsia Vital Signs Vital Signs: Temperature 35.6? blood pressure 114/55 heart rate 97 PFSH Medical History Addiction (~2015) Anemia (~2018) Anxiety Depression Gestational hypertension Heat stroke Left hand fracture Migraine Obesity PTSD (post-traumatic stress disorder) SAB (spontaneous ) (~07/2016) Surgical History No significant past surgical history Family History Father No problems noted. Mother Hypothyroidism (acquired) Grandfather Family estrangement Chronic alcoholism Grandmother History of prediabetes Grandfather Melanoma Grandmother S/P triple vessel bypass Smoker Sister No problems noted. 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 Smoking Status: Former smoker Tobacco: How many years used: 2 Smokeless tobacco user: dissolvable tobacco quit status: quit date established second hand exposure: No alcohol intake: former substance use type: does not use, former substance user and opiates Evaluation Evaluation Baseline heart rate: 150 Variability: Moderate (11-25) monitor accelerations: Present Monitor Decelerations: Absent Category of Tracing: Reactive Diagnosis, Plan/Disposition Final Diagnosis (1) 34 weeks gestation of : Status: Acute (2) Gestational hypertension: Status: Acute Plan/Disposition Plan: 21 year old at 34+2 weeks with gestational HTN. NST reactive today, ADALGISA 12. US was performed today for growth and returned with EFW 99%. She has not yet had her consultation with MFM but it is scheduled. Will continue twice weekly NST and weekly ADALGISA. OB Disposition: home
== END 2021-03-30 12:05 | disposition home or self-care (01) ==
LOC: OB 04-01 13:38
PROVIDERS: PCP Family Medicine; Referring Provider Family Medicine; Visit Provider Family Medicine
DX: O13.3 Gestational [pregnancy-induced] hypertension without significant proteinuria, third trimester (principal); Z3A.34 34 weeks gestation of pregnancy; O36.63X0 Maternal care for excessive fetal growth, third trimester, not applicable or unspecified; O99.891 Other specified diseases and conditions complicating pregnancy; L29.9 Pruritus, unspecified
CPT/HCPCS: 36415; 59025; 76815; 80053; 82239; 85025; G0378; G0379

== ENCOUNTER 2021-04-02 13:14 | Outpatient (CLI) | payer OTHER, SELFPAY ==
--- NOTE | 2021-04-02 14:28 | PM.OBTRLD ---
Visit Information Visit Information Date of evaluation: 04/02/21 Primary OB Provider: Claire Guillen Reason for Evaluation: Yes non-stress test non-stress test reason: hypertension/pre-eclampsia Vital Signs Vital Signs: Temperature 35.8? blood pressure 121/60 heart rate 110 PFSH Medical History Addiction (~2015) Anemia (~2018) Anxiety Depression Gestational hypertension Heat stroke Left hand fracture Migraine Obesity PTSD (post-traumatic stress disorder) SAB (spontaneous ) (~07/2016) Surgical History No significant past surgical history Family History Father No problems noted. Mother Hypothyroidism (acquired) Grandfather Family estrangement Chronic alcoholism Grandmother History of prediabetes Grandfather Melanoma Grandmother S/P triple vessel bypass Smoker Sister No problems noted. 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 Smoking Status: Former smoker Tobacco: How many years used: 2 Smokeless tobacco user: dissolvable tobacco quit status: quit date established second hand exposure: No alcohol intake: former substance use type: does not use, former substance user and opiates Evaluation Evaluation Baseline heart rate: 140 Variability: Moderate (11-25) monitor accelerations: Present Monitor Decelerations: Absent Category of Tracing: Reactive Diagnosis, Plan/Disposition Final Diagnosis (1) 34 weeks gestation of : Status: Acute (2) Gestational hypertension: Status: Acute Plan/Disposition Plan: 21 year old at 34+5 weeks with gestational HTN. NST reactive today, blood pressure normal. Will continue twice weekly NST and weekly ADALGISA. Induction at 37 weeks. OB Disposition: home
== END 2021-04-02 14:05 | disposition home or self-care (01) ==
LOC: LABOR 13:20 → OB 04-06 14:21
PROVIDERS: PCP Family Medicine; Referring Provider Family Medicine; Visit Provider Family Medicine
DX: O13.3 Gestational [pregnancy-induced] hypertension without significant proteinuria, third trimester (principal); Z3A.34 34 weeks gestation of pregnancy
CPT/HCPCS: 59025; G0378; G0379

== ENCOUNTER 2021-04-06 12:06 | Outpatient (CLI) | payer OTHER, SELFPAY | END 2021-04-06 13:14 | disposition home or self-care (01) | LOC: LABOR 12:10 → OB 04-12 09:17 | PROVIDERS: PCP Family Medicine; Referring Provider Family Medicine; Visit Provider Family Medicine | DX: Z34.03 Encounter for supervision of normal first pregnancy, third trimester (principal); Z3A.35 35 weeks gestation of pregnancy | CPT/HCPCS: 59025; G0378; G0379 ==

== ENCOUNTER 2021-04-09 13:30 | Outpatient (CLI) | payer OTHER, SELFPAY | END 2021-04-09 14:08 | disposition home or self-care (01) | LOC: LABOR 13:40 → OB 04-12 09:45 | PROVIDERS: PCP Family Medicine; Referring Provider Family Medicine; Visit Provider Specialist | DX: O47.03 False labor before 37 completed weeks of gestation, third trimester (principal); O13.3 Gestational [pregnancy-induced] hypertension without significant proteinuria, third trimester; Z3A.35 35 weeks gestation of pregnancy | CPT/HCPCS: 59025; G0378; G0379 ==

== ENCOUNTER 2021-04-13 11:42 | Outpatient (CLI) | payer OTHER, SELFPAY ==
--- NOTE | 2021-04-13 11:46 | DI.US.S_ITS ---
PROCEDURE: US OB LIMITED INDICATIONS: AMNIOTIC FLUID INDEX. HYPERTENSION. OUTSIDE/PRIOR DATING DATA: Last menstrual period (LMP): Not known LMP-based estimated date of delivery (LUISA): Not applicable First dating scan (date and location): December 28, 2020 Estimated date of delivery (LUISA) from first dating scan: May 10, 2021 The calculations are made using the ultrasound LUISA of May 10, 2021 TECHNIQUE: Real-time scanning was performed of the fetus, with image documentation. Endovaginal scanning: Performed COMPARISON: [facility], OB LIMITED, 03/30/2021, 11:01. [facility], OB LIMITED, 03/23/2021, 12:45. [facility], OB LIMITED, 02/19/2021, 15:00. [facility], OB >= 14 WEEKS FETUS, 12/28/2020, 15:49. FINDINGS: A single living intrauterine gestation is present. Presentation: Cephalic Placenta: Placental position is posterior right without previa. Amniotic fluid index: 12.1 cm, normal range is 5-24 cm. heart rate: 157 beats per minute. Maternal cervical canal: Not visualized. Estimated gestational age from initial scan: 36 weeks 1 day IMPRESSION: 1. Single living intrauterine . 2. Amniotic fluid index 12.1 centimeters, normal range 5-24 centimeters. Dictated by: Maude Fairchild MD, PhD on 04/13/2021 at 12:28 Approved by: Maude Fairchild MD, PhD on 04/13/2021 at 12:31
[2021-04-13 12:15] LABS: Add Manual Diff / Slide Review NO; Basophils Absolute Auto 0 /uL (0-100); Basophils Percent Auto 0.3 % (0-2); Eosinophils Absolute Auto 0 /uL (0-450); Eosinophils Percent Auto 0.3 % (2-4); Hematocrit 31.3 % (36-46); Hemoglobin 9.9 g/dL (12.0-16.0); Lymphocytes Absolute Auto 1700 /uL (1100-4500); Lymphocytes Percent Auto 13.8 % (25-40); Mean Corpuscular HGB Conc 31.6 % (30-36); Mean Corpuscular Hemoglobin 23.8 PG (26-34); Mean Corpuscular Volume 75.3 fL (80-100); Monocytes Absolute Auto 500 /uL (0-900); Monocytes Percent Auto 4.1 % (3-14); Neutrophils Absolute Auto 10100 /uL (1500-7000); Neutrophils Percent Auto 81.5 % (50-75); Platelet Count 371 X10^3/uL (150-400); Red Blood Cell Count 4.16 X10^6/uL (4.0-5.2); Red Cell Distribution Width 18.6 % (11.6-14.8); White Blood Cell Count 12.3 X10^3/uL (4.5-11.0)
[2021-04-13 12:45] LABS: Alanine Aminotransferase 12 IU/L (<35); Albumin 3.7 g/dL (3.5-5.0); Albumin Globulin Ratio 1.1 (1.0-2.8); Alkaline Phosphatase 83 U/L (38-126); Aspartate Aminotransferase 18 IU/L (14-36); BUN Creatinine Ratio 13.2 (6-22); Bilirubin Total 0.3 mg/dL (0.2-1.3); Blood Urea Nitrogen 7 mg/dL (7-17); Calcium 9.9 mg/dL (8.4-10.2); Carbon Dioxide 24 mmol/L (22-32); Chloride 104 mmol/L (98-107); Estimated Glomerular Filt Rate > 60.0 mL/min (>60); Globulin 3.5 g/dL (1.7-4.1); Glucose 128 mg/dL (70-100); HEMOLYSIS < 15 (0-50); Potassium 3.8 mmol/L (3.4-5.1); Sodium 135 mmol/L (137-145); Total Protein 7.2 g/dL (6.3-8.2)
--- NOTE | 2021-04-13 12:56 | PM.OBTRLD ---
Visit Information Visit Information Date of evaluation: 04/13/21 Primary OB Provider: Claire Guillen Reason for Evaluation: Yes non-stress test non-stress test reason: hypertension/pre-eclampsia Vital Signs Vital Signs: Temperature 36.0? blood pressure 132/73 heart rate 100 PFSH Medical History Addiction (~2015) Anemia (~2018) Anxiety Depression Gestational hypertension Heat stroke Left hand fracture Migraine Obesity PTSD (post-traumatic stress disorder) SAB (spontaneous ) (~07/2016) Surgical History No significant past surgical history Family History Father No problems noted. Mother Hypothyroidism (acquired) Grandfather Family estrangement Chronic alcoholism Grandmother History of prediabetes Grandfather Melanoma Grandmother S/P triple vessel bypass Smoker Sister No problems noted. 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 Smoking Status: Former smoker Tobacco: How many years used: 2 Smokeless tobacco user: dissolvable tobacco quit status: quit date established second hand exposure: No alcohol intake: former substance use type: does not use, former substance user and opiates Objective Labs Result Diagrams: 04/13/21 11:54 04/13/21 11:54 Labs: Laboratory Results - last 24 hr 04/13/21 04/13/21 11:54 11:54 WBC 12.3 H RBC 4.16 Hgb 9.9 L Hct 31.3 L MCV 75.3 L MCH 23.8 L MCHC 31.6 RDW 18.6 H Plt Count 371 Neut % (Auto) 81.5 H Lymph % (Auto) 13.8 L [place] % (Auto) 4.1 Eos % (Auto) 0.3 L Baso % (Auto) 0.3 Neut # (Auto) 08089 H Lymph # (Auto) 1700 [place] # (Auto) 500 Eos # (Auto) 0 Baso # (Auto) 0 Sodium 135 L Potassium 3.8 Chloride 104 Carbon Dioxide 24 BUN 7 Creatinine 0.53 Estimated GFR > 60.0 BUN/Creatinine Ratio 13.2 Glucose 128 H Calcium 9.9 Total Bilirubin 0.3 AST 18 ALT 12 Alkaline Phosphatase 83 Total Protein 7.2 Albumin 3.7 Globulin 3.5 Albumin/Globulin Ratio 1.1 Evaluation Evaluation Baseline heart rate: 130 Variability: Moderate (11-25) monitor accelerations: Present Monitor Decelerations: Absent Category of Tracing: Reactive Diagnosis, Plan/Disposition Final Diagnosis (1) 36 weeks gestation of : Status: Acute (2) Gestational hypertension: Status: Acute Plan/Disposition Plan: 21-year-old at 36 weeks and 2 days with gestational hypertension on labetalol. Blood pressure normal range. NST reactive. ADALGISA 12 today and labs reassuring. She will be scheduled for induction at 37 weeks. OB Disposition: home
== END 2021-04-13 13:07 | disposition home or self-care (01) ==
LOC: OB 04-19 14:37
PROVIDERS: PCP Family Medicine; Referring Provider Family Medicine; Visit Provider Family Medicine
DX: O13.3 Gestational [pregnancy-induced] hypertension without significant proteinuria, third trimester (principal); Z3A.36 36 weeks gestation of pregnancy
CPT/HCPCS: 36415; 59025; 76815; 80053; 85025; 87653; G0378; G0379

== ENCOUNTER → 2021-04-13 15:20 | Outpatient (CLI) | payer OTHER, SELFPAY ==
[2021-04-14 20:29] LABS: Strep Grp B PCR NEG for Grp B Strep
== END ==
PROVIDERS: PCP Family Medicine; Visit Provider Family Medicine
DX: Z34.90 Encounter for supervision of normal pregnancy, unspecified, unspecified trimester (principal); Z3A.36 36 weeks gestation of pregnancy
CPT/HCPCS: 87653

== ENCOUNTER 2021-04-19 12:31 | Outpatient (CLI) | payer OTHER, SELFPAY ==
--- NOTE | 2021-04-19 13:13 | DI.US.S_ITS ---
PROCEDURE: US OB LIMITED INDICATIONS: ADALGISA, gestational HTN OUTSIDE/PRIOR DATING DATA: Last menstrual period (LMP): Unknown. LMP-based estimated date of delivery (LUISA): Not applicable. First dating scan (date and location): 12/28/20. Estimated date of delivery (LUISA) from first dating scan: 05/10/21. The calculations are made using the first-trimester ultrasound LUISA of 05/10/21. TECHNIQUE: Real-time scanning was performed of the fetus, with image documentation. Endovaginal scanning: Not performed COMPARISON: [facility], OB LIMITED, 04/13/2021, 11:59. FINDINGS: A single living intrauterine gestation is present. Presentation: Vertex. Placenta: Placental position is posterior to the right. Amniotic fluid index: 13.2 cm, normal range is 5-24 cm. Single deepest vertical pocket is 4.5 cm. heart rate: 141 beats per minute. Maternal cervical canal: Not visible. Clinically estimated gestational age: 37 weeks 0 days IMPRESSION: 1. Single viable intrauterine in vertex presentation. 2. Amniotic fluid index 13.2 cm. Dictated by: Cathy Kitchen M.D. on 04/19/2021 at 14:19 Approved by: Cathy Kitchen M.D. on 04/19/2021 at 14:22
--- NOTE | 2021-04-19 13:14 | P.TNLD_ITS ---
Visit Information Visit Information Date of evaluation: 04/19/21 Primary OB Provider: Claire Guillen Reason for Evaluation: Yes non-stress test non-stress test reason: hypertens ion/pre-eclampsia Vital Signs Vital Signs: Temperature 35.8? blood pressure 108/58 heart rate 100 PFSH Medical History Addiction (~2015) Anemia (~2017) Anxiety Depression Gestational hypertension Heat stroke Left hand fracture Migraine Obesity PTSD (post-traumatic stress disorder) SAB (spontaneous ) (~07/2016) Surgical History No significant past surgical history Family History Father No problems noted. Mother Hypothyroidism (acquired) Grandfather Family estrangement Chronic alcoholism Grandmother History of prediabetes Grandfather Melanoma Grandmother S/P triple vessel bypass Smoker Sister No problems noted. 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 Smoking Status: Former smoker Tobacco: How many years used: 2 Smokeless tobacco user: dissolvable tobacco quit status: quit date established second hand exposure: No alcohol intake: former substance use type: does not use, former substance user and opiates Objective Labs Result Diagrams: 04/19/21 13:40 04/19/21 13:10 Evaluation Evaluation Baseline heart rate: 140 Variability: Moderate (11-25) monitor accelerations: Present Monitor Decelerations: Absent Contraction Frequency (minutes): 6 Category of Tracing: Reactive Diagnosis, Plan/Disposition Final Diagnosis (1) Gestational hypertension: Status: Acute (2) 37 weeks gestation of : Status: Acute Plan/Disposition Plan: 21-year-old at 37 weeks with gestational hypertension on labetalol.? Blood pressure normal range.? NST reactive.? ADALGISA 13 today and labs reassuring.? She is scheduled for induction in 3 days and in clinic tomorrow. OB Disposition: home
[2021-04-19 13:33] LABS: Alanine Aminotransferase 12 IU/L (<35); Albumin 3.9 g/dL (3.5-5.0); Albumin Globulin Ratio 1.1 (1.0-2.8); Alkaline Phosphatase 95 U/L (38-126); Aspartate Aminotransferase 19 IU/L (14-36); BUN Creatinine Ratio 13.5 (6-22); Bilirubin Total 0.3 mg/dL (0.2-1.3); Blood Urea Nitrogen 7 mg/dL (7-17); Calcium 9.7 mg/dL (8.4-10.2); Carbon Dioxide 23 mmol/L (22-32); Chloride 105 mmol/L (98-107); Estimated Glomerular Filt Rate > 60.0 mL/min (>60); Globulin 3.6 g/dL (1.7-4.1); Glucose 98 mg/dL (70-100); HEMOLYSIS < 15 (0-50); Potassium 4.1 mmol/L (3.4-5.1); Sodium 135 mmol/L (137-145); Total Protein 7.5 g/dL (6.3-8.2)
[2021-04-19 13:48] LABS: Add Manual Diff / Slide Review NO; Basophils Absolute Auto 100 /uL (0-100); Basophils Percent Auto 0.5 % (0-2); Eosinophils Absolute Auto 0 /uL (0-450); Eosinophils Percent Auto 0.3 % (2-4); Hematocrit 32.2 % (36-46); Hemoglobin 10.4 g/dL (12.0-16.0); Lymphocytes Absolute Auto 1600 /uL (1100-4500); Lymphocytes Percent Auto 12.6 % (25-40); Mean Corpuscular HGB Conc 32.2 % (30-36); Mean Corpuscular Hemoglobin 23.7 PG (26-34); Mean Corpuscular Volume 73.7 fL (80-100); Monocytes Absolute Auto 600 /uL (0-900); Neutrophils Absolute Auto 10200 /uL (1500-7000); Neutrophils Percent Auto 81.6 % (50-75); Platelet Count 391 X10^3/uL (150-400); Red Blood Cell Count 4.37 X10^6/uL (4.0-5.2); Red Cell Distribution Width 18.4 % (11.6-14.8); White Blood Cell Count 12.5 X10^3/uL (4.5-11.0)
== END 2021-04-19 14:06 | disposition home or self-care (01) ==
LOC: LABOR 12:59 → OB 04-20 10:32
PROVIDERS: PCP Family Medicine; Referring Provider Family Medicine; Visit Provider Family Medicine
DX: O13.3 Gestational [pregnancy-induced] hypertension without significant proteinuria, third trimester (principal); Z3A.37 37 weeks gestation of pregnancy
CPT/HCPCS: 36415; 59025; 76815; 80053; 85025; G0378; G0379

== ENCOUNTER 2021-04-20 12:58 | Outpatient (CLI) | payer OTHER, SELFPAY | END 2021-04-20 13:42 | disposition home or self-care (01) | LOC: LABOR 13:21 → OB 04-22 11:08 | PROVIDERS: PCP Family Medicine; Referring Provider Family Medicine; Visit Provider Family Medicine | DX: O13.3 Gestational [pregnancy-induced] hypertension without significant proteinuria, third trimester (principal); Z3A.37 37 weeks gestation of pregnancy | CPT/HCPCS: 59025; G0378; G0379 ==

== ENCOUNTER 2021-04-21 17:43 | Inpatient (IN) | payer OTHER, SELFPAY ==
[2021-04-21 18:30] VITALS: BP 126/65
[2021-04-21 18:45] LABS: Add Manual Diff / Slide Review NO; Basophils Absolute Auto 100 /uL (0-100); Basophils Percent Auto 0.9 % (0-2); Eosinophils Absolute Auto 100 /uL (0-450); Eosinophils Percent Auto 0.5 % (2-4); Hematocrit 30.5 % (36-46); Hemoglobin 9.8 g/dL (12.0-16.0); Lymphocytes Absolute Auto 1900 /uL (1100-4500); Mean Corpuscular HGB Conc 32.2 % (30-36); Mean Corpuscular Hemoglobin 23.9 PG (26-34); Mean Corpuscular Volume 74.3 fL (80-100); Monocytes Absolute Auto 600 /uL (0-900); Monocytes Percent Auto 4.5 % (3-14); Neutrophils Absolute Auto 9500 /uL (1500-7000); Neutrophils Percent Auto 78.1 % (50-75); Platelet Count 368 X10^3/uL (150-400); Red Cell Distribution Width 18.5 % (11.6-14.8); White Blood Cell Count 12.2 X10^3/uL (4.5-11.0)
[2021-04-21 18:54] LABS: COVID19 -Nasal RAPID Negative (Negative)
[2021-04-21] MEDS: DINOPROSTONE VAG (CERVIDIL) 10 MG VAG (19:11)
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
[2021-04-22] MEDS: LACTATED RINGERS 1,000 ML 100 ML IV ×2 (08:44→10:43)
[2021-04-22 08:50] VITALS: BP 137/63; PULSE 78
[2021-04-22] MEDS: LABETALOL 100 MG TABLET PO (08:50)
[2021-04-22] MEDS: PRENATAL VIT,CALC/IRON/FOLIC 1 TABLET 1 TAB PO (08:51)
[2021-04-22] MEDS: fentaNYL 100 MCG/2 ML INJ 50 MCG IV (09:15)
[2021-04-22] MEDS: OXYTOCIN PREMIX 30 UNIT/500 ML PLAST..BAG IV (09:19)
[2021-04-22] MEDS: FENT 2MCG/ML BUPIV 0.125% EPI 200 MCG/100 ML PLAST..BAG 12 MCG EPIDURAL ×2 (10:15→15:12)
--- NOTE | 2021-04-22 13:15 | PM.OBPNLAB ---
Date/Time Date Patient Seen: 04/22/21 Time Patient Seen: 13:00 Pain Control Pain control: epidural Pelvic Exam Dilation (cm): 9 Effacement (%): 100 station: 0 Contractions Pitocin rate (mU/min): 9 Contraction frequency (min): 2 Status status: Category ll Heart Rate Baseline: 130 Monitor Accelerations: Present Monitor Decelerations: Episodic (Early vs late, low BP associated, not recurrent) Assessment and Plan Assessment: active labor Plan: continuous present management Comments: 21 year old at 37+4 weeks in active labor. Comfortable with epidural and making good cervical change. Continue expectant management.
--- NOTE | 2021-04-22 17:37 | PM.OBPRVD ---
Labor & Delivery Delivery date: 04/22/21 Cervical ripening method: per Cervidil protocol Delivery augmentation: pitocin Delivery monitor: external FHT Route of delivery: L&D Laceration Description: Vaginal - 2nd Degree Delivery repair: chromic Estimated blood loss (mL): 150 Anesthesia Type: Epidural Narrative: Patient is a 21-year-old at 37 weeks and 4 days who gave on 04/22/21 at 5:05 PM. LUISA: 05/09/21 Hospital problems: Gestational hypertension 37 weeks of Epidural analgesia STAGE I: Labor Patient was admitted for cervical ripening and received Cervidil the night of 04/21/21. Spontaneous rupture membranes occurred 04/22/21 at 5:30 a.m. with clear fluid and spontaneous labor began shortly thereafter. She went on to receive an epidural with excellent pain control. Pitocin given for labor augmentation due to spacing of contractions. heart tones were primarily category 1. Patient had a couple decelerations when oxygen saturations were found to be in the low 90s while sleeping. She was then placed on 2 L of oxygen while sleeping for suspected sleep apnea. STAGE II: Delivery Patient was found to be complete at 1:44 p.m. however no urge to push. She labored down for an hour and was rechecked with some descent. There was minimal descent with pushing so the decision made to labor down an additional hour given category 1 EFM. Pushing began at approximately 4:30 p.m.. She went on to deliver a vigorous female at 5:05 p.m.. was vertex and XIN. Infant was immediately placed on mother's abdomen. Cord was clamped and cut after 1 minutes delay. Apgars were 8 and 9. No resuscitation of the required. STAGE III: Placenta/Cord Placenta delivered at 5:12 p.m. after active management and appeared intact with a three-vessel cord. Pitocin bolus given after delivery of placenta. Fundus firm at umbilicus. A second-degree vaginal laceration was repaired in the usual fashion with 3-0 chromic with good hemostasis. EBL: 150 mL. Needle and sponge counts were correct. The vagina was inspected and no items were left in situ. Patient was doing well with Cambrie, her and [] at bedside. Baby 1: Infant gender: Female Presentation: vertex Position: Left Occiput Anterior Placenta delivery description: Spontaneous Cord Vessel Description: 3 Vessels score (1 min): 8 score (5 min): 9 Plan for aftercare: Routine care
[2021-04-22] MEDS: IBUPROFEN 600 MG TABLET PO (18:40)
[2021-04-23] MEDS: LANOLIN OINT 7 GM 1 APPLIC TOP (00:42)
[2021-04-23] MEDS: IBUPROFEN 600 MG TABLET PO ×3 (00:42→18:17)
[2021-04-23] MEDS: ACETAMINOPHEN 325 MG TABLET 650 MG PO ×3 (00:43→18:17)
--- NOTE | 2021-04-23 08:14 | PM.OBPN.1 ---
Subjective - OB Subjective Patient comments: no complaints and pain well controlled baby status: doing well feeding status: exclusively breast feeding Date Patient Seen: 04/23/21 Time Patient Seen: 07:45 Interval history: Doing well, working on but struggling with latch. Nipples sore. Bleeding as expected, pain controlled with Tylenol and ibuprofen. Exam Narrative Exam Narrative: Temperature 96.7? blood pressure 113/57 heart rate 80 respirations 18 General: Awake and alert, no acute distress. HEENT: NCAT, EOMI, moist oral mucosa CV: Regular rate and rhythm, no murmurs, rubs or gallops Lungs: CTAB, no wheezes, rales, or rhonchi Abdomen: Soft, nontender; bowel tones active; uterus firm at umbilicus Extremities: Warm, no edema Objective Labs Result Diagrams: 04/21/21 18:30 Assessment & Plan Assessment and Plan (1) Spontaneous vaginal delivery: Status: Acute (2) 37 weeks gestation of : Status: Acute Plan day: 1 plan OB: routine care Comments: Hopefully can come see them today. Anticipate discharge home tomorrow. Time Spent With Patient Time: Total time spent is greater than 50% in coordination of care (as documented) at patient's floor/unit and/or counseling patient: Time with patient: less than 15 minutes
[2021-04-23] MEDS: FERROUS SULFATE 325 MG TABLET PO (18:18)
[2021-04-23] MEDS: DOCUSATE 100 MG CAPSULE PO (18:18)
[2021-04-23] MEDS: DERMOPLAST SPRAY 20% 60 ML 1 SPRAY TOP (18:20)
[2021-04-24] MEDS: IBUPROFEN 600 MG TABLET PO ×2 (00:02→06:24)
[2021-04-24] MEDS: ACETAMINOPHEN 325 MG TABLET 650 MG PO ×2 (00:02→06:24)
[2021-04-24] MEDS: FERROUS SULFATE 325 MG TABLET PO (08:43)
[2021-04-24] MEDS: PRENATAL VIT,CALC/IRON/FOLIC 1 TABLET 1 TAB PO (08:43)
[2021-04-24] MEDS: DOCUSATE 100 MG CAPSULE PO (08:44)
--- NOTE | 2021-04-24 08:48 | PM.OBDS.1 ---
Discharge Providers Provider Date of admission: 04/21/21 17:43 Discharge Date: 04/24/21 Primary care physician: Claire Guillen DO Consults: 04/23/21 17:39 Consult to Grain Manager Routine Comment: Discharge provider: Claire Guillen DO Summary Hospital Course Date Patient Seen: 04/24/21 Time Patient Seen: 08:00 Diagnoses: 37 weeks of Gestational hypertension Spontaneous vaginal delivery Hospital Course: 21-year-old after uncomplicated spontaneous vaginal delivery at 37 weeks and 4 days on 04/22/21. Patient was brought in for induction due to gestational hypertension. She progressed into active labor after Cervidil then received Pitocin for augmentation. She went on to receive an epidural. Delivery was uncomplicated of a vigorous female . A second-degree vaginal laceration was repaired in the usual fashion. course has been uncomplicated. Patient is ambulating, voiding, stooling. Vaginal bleeding as expected and lightening. She is working on and has also been supplementing with formula. No issues in the . Advised patient to call for fevers, severe pain or bleeding through more than a pad an hour. Follow-up in clinic in 6 weeks. Peripartum Data Delivery Method: Natural Vaginal Laceration Description: Vaginal - 2nd Degree complications: none [place] 1: Gender: Female Disposition of : home Discharge Diagnosis (1) Spontaneous vaginal delivery: Status: Acute (2) 37 weeks gestation of : Status: Acute Status at Discharge Cognitive/behavioral status at discharge: at baseline, oriented Functional status at discharge: independent ambulation Overall status at discharge: patient is progressing back to baseline Time Spent with Patient Time attestation: Total time spent providing and/or coordinating discharge services: Time spent: Less than 30 minutes Objective Labs Result Diagrams: 04/21/21 18:30 Exam Vital Signs (past 8 hours): Temperature 97.9? blood pressure 129/82 heart rate 81 respirations 16 Narrative Exam Narrative: General: Awake and alert, no acute distress. HEENT: NCAT, EOMI, moist oral mucosa CV: Regular rate and rhythm, no murmurs, rubs or gallops Lungs: CTAB, no wheezes, rales, or rhonchi Abdomen: Soft, nontender; bowel tones active; uterus firm 1 cm below umbilicus Extremities: Warm, trace edema Discharge Plan Discharge Plan Patient Disposition: Home Discharge orders & Medications Prescriptions: New docusate sodium 100 mg Capsule 100 mg PO DAILY Qty: 30 0RF ibuprofen 600 mg Tablet 600 mg PO Q6HR PRN (Reason: Pain, Mild (1-3)) Qty: 30 0RF Continued prenat.vits,jose,mpe-qtww-bxikw Tablet 1 tab PO DAILY 0RF Discontinued (DME) Blood Glucose Test Strip See Rx Instructions .ROUTE .MEDSUPPLY Qty: 100 11RF Rx Instructions: test blood sugar 4 times daily as directed by physician (DME) lancets Misc See Rx Instructions .ROUTE .MEDSUPPLY Qty: 200 11RF Rx Instructions: Useto test blood sugar 4 zachery daily As directed (DME) blood-glucose meter Misc See Rx Instructions .ROUTE .MEDSUPPLY Qty: 1 0RF Rx Instructions: use to test blood sugar daily labetalol 100 mg tablet 100 mg PO BID Qty: 60 3RF Follow up/Referrals: Claire Guillen DO [Primary Care Provider] - 6 Weeks Visit Report/Discharge Packet Visit Report Forms: Patient Portal/API, Stroke Signs & Symptoms Discharge Data Primary Care Provider: Claire Guillen
[2021-04-24] MEDS: MEASLES,MUMPS,RUBELLA VACC/PF 0.5 ML VIAL SUBCUT (11:25)
== END 2021-04-24 11:40 | disposition home or self-care (01) | DRG 807 ==
PROVIDERS: Admitting Provider Family Medicine; PCP Family Medicine; Referring Provider Family Medicine; Visit Provider Family Medicine
DX: O13.4 Gestational [pregnancy-induced] hypertension without significant proteinuria, complicating childbirth (principal); Z37.0 Single live birth; Z3A.37 37 weeks gestation of pregnancy; O70.1 Second degree perineal laceration during delivery; O36.63X0 Maternal care for excessive fetal growth, third trimester, not applicable or unspecified; Z20.822 Contact with and (suspected) exposure to COVID-19
CPT/HCPCS: 01967; 36415; 59050; 59400; 85025; 86850; 86900; 86901; 87635; C9803; G0379; J2590; J3010